=== PATIENT | female | born 1970 | race Caucasian/White ===

== ENCOUNTER 2019-07-31 13:35 | Emergency (ER) | payer OTHER ==
[~2019-07-31] VITALS: Ht 149.9 cm; Wt 64.4 kg
[2019-07-31 13:41] VITALS: Ht 149.9 cm; Wt 64.4 kg
[2019-07-31 15:01] LABS: CARBON DIOXIDE 26.1 mmol/L (21-32); CHLORIDE SERUM 97 mmol/L (98-107); CREATININE SERUM 0.7 mg/dL (0.6-1.0); GFR1 > 60 mL/min; GLUCOSE SERUM 445 mg/dL (74-106); SODIUM SERUM 132 mmol/L (136-145)
[2019-07-31 15:40] VITALS: BP 114/74
== END 2019-07-31 15:40 | disposition home or self-care (01) ==
LOC: ED 13:35
PROVIDERS: Emergency Medicine
DX: E11.65 Type 2 diabetes mellitus with hyperglycemia (principal)
CPT/HCPCS: 82962; J7030